=== PATIENT | female | born 1960 | race Caucasian/White ===

== ENCOUNTER → 2016-04-14 | Outpatient (CLI) | payer OTHER ==
[~2016-04-14] MED LIST: SINCALIDE 5 MCG VIAL IJ ONE
--- NOTE | 2016-04-14 10:46 | NM ---
Nuclear Medicine Hepatobiliary Scan with a Gallbladder Ejection Fraction Clinical History: 56-year-old female with epigastric pain and normal gallbladder sonography. Evaluate for dyskinesia. ICD-10 Diagnostic Code: R10.13. Radiopharmaceutical: 6.8 mCi of IV technetium 99m Choletec. Medical Pharmaceutical: 0.81 mcg of IV cholecystokinin, slowly infused over 30 minutes. Comparison Study: Limited right upper quadrant abdominal sonography, dated April 06, 2016. Findings: Following the uncomplicated intravenous administration of the radiopharmaceutical, there is prompt homogeneous uptake by the liver. The gallbladder begins to fill by 12-13 minutes, and small b owel begins to fill by 8 minutes. There is therefore no evidence of acute or chronic cholecystitis, o r cystic or common bile duct obstruction. There is no duodenal-gastric reflux appreciated. Gallbladder Ejection Fraction: There is prompt washout on the time-activity curve, with a gallbladder ejection fraction of 84% (normal range should be above 35%). There is therefore no evidence of gallb ladder dyskinesia. Impression: Normal study.
== END ==
LOC: FIMAGING 08:19
PROVIDERS: ATTEND Internal Medicine
DX: R10.13 Epigastric pain (principal)
CPT/HCPCS: 78227; A9537

== ENCOUNTER 2016-06-06 17:14 | Emergency (ER) | payer OTHER ==
[2016-06-06 18:07] VITALS: BP 111/69; PULSE 86; RESP 18; TEMP 97.2; O2SAT 100
[2016-06-06] MEDS ORDERED: AZITHROMYCIN 250 MG TAB PO ONE (19:09)
[2016-06-06] MEDS ORDERED: AMOXICILLIN/CLAVULANATE POT 875/125 MG TAB PO ONE (19:09)
--- NOTE | 2016-06-06 19:15 | UCPHY ---
H & P Time Seen by Provider: 06/06/16 18:09 Patient Type: Established HPI/ROS: HPI I think I have pneumonia. 56-year-old female who is an avid runner. She reports that she has had a nonproductive cough that has been worsening over the last 4 days, worse with exercise. She reports also that she feels a pain in her right upper chest that radiates to her back. She notices this also when she is laying on her right side. She denies fever. She reports having some intermittent chills. ROS: Constitutional: No fever, as above. No weakness. Eyes: No discharge. No changes in vision. ENT: No sore throat. No nasal congestion or rhinorrhea. Respiratory: As above. No shortness of breath. Cardiac: No chest pain, no palpitations. Gastrointestinal: No abdominal pain, no vomiting, no diarrhea. Genitourinary: No hematuria. No dysuria or increased frequency with urination. Musculoskeletal: No back pain. No neck pain. No myalgias or arthralgias. Skin: No rashes. Neurological: No headache. No focal weakness or altered sensation. Past medical history: Hypothyroidism, appendectomy, , right knee surgery. Social history: Here by herself. Nonsmoker Physical Exam: General Appearance: Alert, no distress. This patient is responding to questions appropriately and in full sentences. This patient appears well- hydrated and well-nourished. Eyes: Pupils equal and round no pallor or injection. No lid edema, erythema or injection. ENT, Mouth: Mucous membranes are moist. The pharyngeal tissues are unremarkable. No edema or swelling. No asymmetry suggestive of abscess. No erythema or exudates. Respiratory: There are no retractions, lungs are clear to auscultation with good air movement bilaterally. Chest wall is nontender to palpation. Cardiovascular: Regular rate and rhythm. No murmur. Neurological: Motor sensory function is grossly intact. Cranial nerves are normal. Gait is normal. Skin: Warm and dry, no rashes. Musculoskeletal: Neck is supple and nontender. Extremities are symmetrical. All joints range without pain or impingement. Psychiatric: No agitation. No depression. Database: EKG: Imaging: Chest x-ray PA and lateral; the cardiac mediastinal silhouette is unremarkable. Right upper lobe infiltrate, no pneumothorax. No acute cardiopulmonary disease process noted. Interpreted by me. Procedures: Emergency department course: Vital signs reviewed and are normal. I discussed her medication allergies. She is an avid runner. I am concerned about tendinopathy if treated with fluoroquinolones. I will start her on Augmentin and azithromycin at urgent care. I feel she is safe for discharge and she feels comfortable going home. She will be prescribed these medications for treatment of her pneumonia. I discussed the importance of follow-up this week with her primary care physician. Return to Urgent Care precautions were thoroughly reviewed. All of her questions were answered. She was discharged in good condition Differential Diagnosis: The differential diagnosis on this patient includes but is not limited to pneumonia. Influenza, pneumothorax, congestive heart failure unlikely. This represents a partial list of diagnoses considered. These considerations are based on history, physical exam, past history, reassessment and diagnostic testing. Smoking Status: Never smoked Constitutional: Initial Vital Signs Temperature (C) 36.2 C 06/06/16 18:05 Heart Rate 86 06/06/16 18:05 Respiratory Rate 18 06/06/16 18:05 Blood Pressure 111/69 06/06/16 18:05 O2 Sat (%) 100 06/06/16 18:05 O2 Delivery Mode Room Air Allergies/Adverse Reactions: No Known Allergies Allergy (Verified 06/06/16 17:38) Home Medications: Medication Instructions Recorded Levothyroxine 12/21/14 Adderall 10 MG (RX) 05/18/15 GABAPENTIN 12/11/15 Amoxicillin/Clavulanate Pot 875 mg PO BID 10 Days 06/06/16 [Augmentin 875 mg tab] Azithromycin [Zithromax] 250 mg PO DAILY #6 tab 06/06/16 Departure - Departure Disposition: Home, Routine, Self-Care Clinical Impression: Pneumonia Condition: Good Instructions: Community Acquired Pneumonia (ED) Additional Instructions: Read and follow provided instructions. Follow-up with your primary care physician in 1-2 days for re-evaluation. No running or physical strenuous activity until you are asymptomatic and you have finished her antibiotics. Take medication as prescribed. It is very important you take your antibiotics just as prescribed through entire course of treatment. Return to the emergency department for worsening cough, fever, difficulty breathing or other serious concerns. Referrals: Selvin Ye DO [Primary Care Provider] - As per Instructions Prescriptions: Amoxicillin/Clavulanate Pot [Augmentin 875 mg tab] 875 mg PO BID 10 Days Azithromycin [Zithromax] 250 mg PO DAILY #6 tab - PQRS PQRS Measurement: 134: Depression screening and followup, PRIME MD-PHQ2 (12 years and older) Over the last 2 weeks, how often have you been bothered by any of the following problems? 1. Feeling down, depressed, or hopeless? 2. Little interest or pleasure in doing things? Answered no to both questions. 130: Documentation of medications. Reviewed all patient medications, doses, route and frequency. 226: Do you smoke? No. 47: 65 and older: Advanced care planning. Patient designates surrogate decision maker as family. 51: 18 years old and older with diagnosis of COPD, spirometry performance. NA 52: 18 years old and older with COPD and symptoms of COPD or FEV1<60% predicted prescribed a B Agonist. NAfamily
[2016-06-06] MEDS ORDERED: HYDROCODONE/APAP 5/325 TAB PO ONE (19:30)
[2016-06-06] MEDS ORDERED: HYDROCODONE/APAP 5/325 TAB ONE (19:36)
== END 2016-06-06 19:30 | disposition home or self-care (01) ==
LOC: CED 17:14
DX: J18.9 Pneumonia, unspecified organism (principal); E03.9 Hypothyroidism, unspecified
CPT/HCPCS: 71020-PO; 99214-PO; G0463-PO

== ENCOUNTER 2016-06-12 16:04 | Emergency (ER) | payer OTHER ==
--- NOTE | 2016-06-12 16:35 | UCPHY ---
H & P Time Seen by Provider: 06/12/16 16:24 Patient Type: Established HPI/ROS: CHIEF COMPLAINT: Chest pain. HISTORY OF PRESENT ILLNESS: The patient is a 56-year-old female with a current diagnosis of pneumonia (diagnosed June 06 and placed on antibiotics) presenting with chest pain, however, was also worse with taking a deep breath and with movement of the right arm. She initially presented in May for 5 days of exertional chest pain and shortness of breath. Chest x-ray at that time , I have reviewed both the films as well as the report showed possible early right upper lobe infiltrate. In March,She notes that she had a diagnosis of pneumonia based on chest x- ray with cough and chills; she had a prompt resolution of symptomatology while on a course of Augmentin, I reviewed the records from that visit. I have also reviewed the chest x-ray, as well. She noted last week when seen that these symptoms were similar to her prior pneumonia that was diagnosed in March. Recently she has noticed that she gets chest pain, shortness of breath, nausea, and "head burning" with exertion. She denies diaphoresis, vomiting, fever, chills, or other complaints. She is now getting tired walking up normal flights of stairs. 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 Vis-a-vis, she could no longer mop a more than a 10 12 foot area without having to rest, due to right arm pain. She tried to use the left arm and she would get similar fatigue but no arm pain. She reports approximately 15 lb of recent weight loss, but this was attributable to her intestinal problems by way of her slat basket maker helper machine which has stabilized.. She denies tuberculosis exposure, nor night sweats. She had extensive workup this past March including HIDA scan. Her father of leukemia at 80 and her mother of liver cancer at 57. She has an extensive family history of obesity, but no early-onset coronary disease. Cardiac risk factors: Age Pulmonary embolus risk factors: none Aortic dissection risk factors: None REVIEW OF SYSTEMS: Constitutional - no fevers or chills Eyes - no diplopia, blurred vision, or discharge ENT - no earache, change in hearing, difficulty swallowing, sore throat. Cardiovascular - no chest pain, shortness of breath, or difficulty breathing. Respiratory - No Shortness of breath, cough, phlegm, wheezing or pleuritic chest pain. GI - no nausea vomiting or diarrhea. There is no abdominal pain or distention. No melena, hematochezia, or bright red blood per rectum. - No hematuria or flank pain. Musculoskeletal - no joint or muscle pain. 10 point ROS otherwise negative Past Medical/Surgical History: Pneumonia, GERD. Social History: Nonsmoker. Smoking Status: Never smoked Physical Exam: General Appearance: Alert, no distress. Afebrile. Normal phonation. No respiratory distress. Eyes: Pupils equal and round no pallor or injection. No icterus ENT, Mouth: Mucous membranes moist. Pharynx not erythematous and without exudate. TM Clear. Neck: No adenopathy. Supple. No JVD. Trachea in midline. Respiratory: There are no retractions, lungs are clear to auscultation. Cardiovascular: Regular rate and rhythm, no murmur. Abdomen: Soft and nontender, no masses, bowel sounds normal. Neurological: Ox3. No motor weakness. Sensation intact. Gait nl. Skin: Warm and dry, no rashes. Musculoskeletal: She is able to abduct the arm however it does cause pain. She has a negative drop test. The area of the bicipital groove is tender however there is no specific site of tenderness in the to suggest a bursitis that would be amenable to injection. However, even the patient notes that this does not cause a recurrence of the pains in the chest that she has been experiencing with exertion and with her mopping. Extremities: No edema. Homans sign negative. No cords. Psychiatric: Patient is oriented X 3, there is no agitation Constitutional: Initial Vital Signs Temperature (C) 36.6 C 06/12/16 16:25 Heart Rate 90 06/12/16 16:25 Respiratory Rate 16 06/12/16 16:25 Blood Pressure 133/73 H 06/12/16 16:25 O2 Sat (%) 95 06/12/16 16:25 O2 Delivery Mode Room Air Allergies/Adverse Reactions: No Known Allergies Allergy (Verified 06/12/16 16:38) Home Medications: Medication Instructions Recorded Levothyroxine 12/21/14 Adderall 10 MG (RX) 05/18/15 GABAPENTIN 12/11/15 Amoxicillin/Clavulanate Pot 875 mg PO BID 10 Days 06/06/16 [Augmentin 875 mg tab] Medical Decision Making - Diagnostics EKG Interpretation: The 12 lead EKG was interpreted by myself. See hard copy and/or "tracemaster" electronic copy for interpretation. Sinus rhythm. Heart rate is 79. Pr interval 136, normal. QTC normal at 459. Normal R-wave progression. No Q- waves. Normal ST-T segments. Normal EKG. Imaging: Study: PA and Lateral Chest X-ray Indication: Chest pain Results: I viewed the images myself on the PACS system, as well as comparing this chest x-ray to the chest x-rays in May as well as March.. My interpretation of the images is: no acute cardiopulmonary disease. The radiologist interpretation is pending at the time of this dictation. ED Course/Re-evaluation: An IV was established and labs ordered. Chest x-ray ordered. 1903: Reassessed patient. Discussed results of her x-rays and blood work. She is noted to have a pain with AB duction of the shoulder but a negative drop test. There is tenderness however over the bicipital groove on the right shoulder but no clear point tenderness to indicate a need for steroid injection. Differential Diagnosis: Differential diagnosis includes but is not limited to the following: ACS, myocardial infarction, pneumothorax, pleurisy, pulmonary embolus, aortic dissection, anxiety, muscle strain. I am unable to do a perk score due to her age 56 Based upon her Wells criteria she is low risk for DVT PE with a negative D- dimer. Her Heart Score is rather low 1-2. I have encouraged her see her family physician for a discussion regarding the benefits of a doing a stress test. However clinically I feel that she is having tendinitis right shoulder but this does not explain her exertional fatigue thereby the recommendation for follow-up She is planning to see physical therapy upon my recommendation she has when she has seen before and will make arrangements accordingly. In the interim due to her digestive issues, she should resume her Prilosec while she is taking ibuprofen - Data Points Laboratory Results: Laboratory Results 06/12/16 17:30 06/12/16 17:30 06/12/16 06/12/16 06/12/16 17:30 17:30 17:30 WBC RBC Hgb Hct MCV MCH MCHC RDW Plt Count MPV Neut % (Auto) Lymph % (Auto) [place] % (Auto) Eos % (Auto) Baso % (Auto) Nucleat RBC Rel Count Absolute Neuts (auto) Absolute Lymphs (auto) Absolute Monos (auto) Absolute Eos (auto) Absolute Basos (auto) Absolute Nucleated RBC Immature Gran % Immature Gran # D-Dimer < 0.27 ug/mLFEU ug/mLFEU (0.00-0.50) Sodium 140 mEq/L mEq/L (134-144) Potassium 4.1 mEq/L mEq/L (3.5-5.2) Chloride 102 mEq/L mEq/L (97-110) Carbon Dioxide 27 mEq/l mEq/l (22-31) Anion Gap 11 mEq/L mEq/L (8-16) BUN 23 mg/dL mg/dL (7-23) Creatinine 0.5 mg/dL L mg/dL (0.6-1.0) Estimated GFR > 60 Glucose 106 mg/dL H mg/dL (70-100) Calcium 9.3 mg/dL mg/dL (8.5-10.4) Troponin I < 0.012 ng/mL ng/mL (0-0.034) Urine Color YELLOW Urine Appearance CLEAR Urine pH 7.0 (5.0-7.5) Ur Specific [place] 1.010 (1.002-1.030) Urine Protein NEGATIVE (NEGATIVE) Urine Ketones NEGATIVE (NEGATIVE) Urine Blood NEGATIVE (NEGATIVE) Urine Nitrate NEGATIVE (NEGATIVE) Urine Bilirubin NEGATIVE (NEGATIVE) Urine Urobilinogen 0.2 EU EU (0.2-1.0) Ur Leukocyte Esterase NEGATIVE (NEGATIVE) Urine Glucose NEGATIVE (NEGATIVE) 06/12/16 17:30 WBC 3.70 10^3/uL L 10^3/uL (3.80-9.50) RBC 5.01 10^6/uL 10^6/uL (4.18-5.33) Hgb 14.8 g/dL g/dL (12.6-16.3) Hct 42.7 % % (38.0-47.0) MCV 85.2 fL fL (81.5-99.8) MCH 29.5 pg pg (27.9-34.1) MCHC 34.7 g/dL g/dL (32.4-36.7) RDW 13.1 % % (11.5-15.2) Plt Count 278 10^3/uL 10^3/uL (150-400) MPV 9.8 fL fL (8.7-11.7) Neut % (Auto) 47.4 % % (39.3-74.2) Lymph % (Auto) 38.6 % % (15.0-45.0) [place] % (Auto) 10.5 % % (4.5-13.0) Eos % (Auto) 2.4 % % (0.6-7.6) Baso % (Auto) 1.1 % % (0.3-1.7) Nucleat RBC Rel Count 0.0 % % (0.0-0.2) Absolute Neuts (auto) 1.75 10^3/uL 10^3/uL (1.70-6.50) Absolute Lymphs (auto) 1.43 10^3/uL 10^3/uL (1.00-3.00) Absolute Monos (auto) 0.39 10^3/uL 10^3/uL (0.30-0.80) Absolute Eos (auto) 0.09 10^3/uL 10^3/uL (0.03-0.40) Absolute Basos (auto) 0.04 10^3/uL 10^3/uL (0.02-0.10) Absolute Nucleated RBC 0.00 10^3/uL 10^3/uL (0-0.01) Immature Gran % 0.0 % % (0.0-1.1) Immature Gran # 0.00 10^3/uL 10^3/uL (0.00-0.10) D-Dimer Sodium Potassium Chloride Carbon Dioxide Anion Gap BUN Creatinine Estimated GFR Glucose Calcium Troponin I Urine Color Urine Appearance Urine pH Ur Specific [place] Urine Protein Urine Ketones Urine Blood Urine Nitrate Urine Bilirubin Urine Urobilinogen Ur Leukocyte Esterase Urine Glucose Medications Given: Discontinued Medications Aspirin (Aspirin) 324 mg PO EDNOW ONE Stop: 06/12/16 17:00 Last Admin: 06/12/16 17:30 Dose: 324 mg Departure - Departure Disposition: Home, Routine, Self-Care Clinical Impression: Right shoulder tendonitis Chest pain Qualifiers: Chest pain type: unspecified Qualified Code(s): R07.9 - Chest pain, unspecified Fatigue Qualifiers: Fatigue type: unspecified Qualified Code(s): R53.83 - Other fatigue Condition: Good Instructions: Chest Pain (ED), Tendinitis (ED), Fatigue (ED) Additional Instructions: Follow up with your primary care provider this coming week for reevaluation. Take 600mg Ibuprofen 3 times daily with food. Re - Start taking your Prilosec as well. Discontinue use of your antibiotics. See physical therapy for your tendinitis of the right shoulder Return for any serious worsening of condition. Referrals: Selvin Ye, DO [Primary Care Provider] - As per Instructions - PQRS PQRS Measurement: Not applicable. Report Scribed for: Donavan Crenshaw Report Scribed by: Selvin Celeste Date of Report: 06/12/16 Time of Report: 16:37 Physician Review and Approval Statement: 06/12/16 16:37 Portions of this note were transcribed by a medical advisor. I personally performed a history, physical exam, medical decision making, and confirmed accuracy of information the transcribed note.
[2016-06-12 16:42] VITALS: BP 133/73; PULSE 90; RESP 16; TEMP 97.9; O2SAT 95
[2016-06-12] MEDS ORDERED: ASPIRIN 81 MG CHEWABLE TAB PO ONE (16:59)
--- NOTE | 2016-06-12 17:16 | CPEKG ---
Heart Rate: 79 RR Interval: 759 P-R Interval: 136 QRSD Interval: 90 QT Interval: 400 QTC Interval: 459 P [place]: 77 QRS [place]: 87 T Wave [place]: 69 EKG Severity - NORMAL ECG - EKG Impression: SINUS RHYTHM Electronically Signed By: Donavan Crenshaw 12-Jun-2016 23:05:25
[2016-06-12 17:33] LABS: ADD DIFF? NO; ADD MORPH? NO; ADD SCAN? NO; ATYPICAL LYMPHOCYTE FLAG 0 (0-99); FRAGMENT RBC FLAG 0 (0-99); HEMATOCRIT 42.7 % (38.0-47.0); HEMOGLOBIN 14.8 g/dL (12.6-16.3); LEFT SHIFT FLG 0 (0-99); LIPEMIA HEMOLYSIS FLAG 90 (0-99); MEAN CELL HEMOGLOBIN 29.5 pg (27.9-34.1); MEAN CELL HEMOGLOBIN CONCENTR. 34.7 g/dL (32.4-36.7); MEAN CELL VOLUME 85.2 fL (81.5-99.8); MEAN PLATELET VOLUME 9.8 fL (8.7-11.7); PLATELET CLUMPS FLAG 0 (0-99); PLATELET COUNT 278 10^3/uL (150-400); RED BLOOD CELL COUNT 5.01 10^6/uL (4.18-5.33); RED CELL DISTRIBUTION WIDTH 13.1 % (11.5-15.2)
[2016-06-12 17:47] LABS: ANION GAP 11 mEq/L (8-16); CALCIUM 9.3 mg/dL (8.5-10.4); CARBON DIOXIDE 27 mEq/l (22-31); CHLORIDE 102 mEq/L (97-110); CREATININE 0.5 mg/dL (0.6-1.0); GLOMERULAR FILTRATION RATE > 60; GLUCOSE 106 mg/dL (70-100); POTASSIUM 4.1 mEq/L (3.5-5.2); SODIUM 140 mEq/L (134-144)
[2016-06-12 17:54] LABS: COLOR YELLOW; LEUKOCYTE ESTERASE,URINE NEGATIVE (NEGATIVE); NITRITE,URINE NEGATIVE (NEGATIVE)
[2016-06-12 18:00] LABS: TROPONIN I < 0.012 ng/mL (0-0.034)
== END 2016-06-12 19:25 | disposition home or self-care (01) ==
LOC: CED 16:04
DX: R07.9 Chest pain, unspecified (principal); R53.83 Other fatigue; M75.81 Other shoulder lesions, right shoulder
CPT/HCPCS: 71020-PO; 80048-PO; 81003-PO; 84484-PO; 85025-PO; 85378-PO; 93010-PO; 99215-PO; G0463-PO

== ENCOUNTER 2016-07-30 12:04 | Emergency (ER) | payer OTHER ==
--- NOTE | 2016-07-30 12:40 | UCPHY ---
H & P Time Seen by Provider: 07/30/16 12:27 Patient Type: Established (CHIEF COMPLAINT: [ ]HISTORY OF PRESENT ILLNESS: [ must have 4 elements]REVIEW OF SYSTEMS: My complete review of systems is negative except as mentioned in the HPI.) HPI/ROS: CHIEF COMPLAINT: Right upper quadrant abdominal pain HISTORY OF PRESENT ILLNESS: The patient is a 56-year-old female who presents to the emergency department with right upper quadrant abdominal pain. She states her symptoms started 1 week ago. They are intermittent. She states her pain is worse with movement. It is sharp. She has had nausea but no vomiting. No shortness of breath or chest pain. No fevers or chills. No dysuria frequency. No leg pain or swelling. No travel. REVIEW OF SYSTEMS: My complete review of systems is negative except as mentioned in the HPI. Past Medical/Surgical History: Includes appendectomy, bunion surgery, meniscus repair, Smoking Status: Never smoked Physical Exam: Vitals noted GENERAL: Well-appearing, in no acute distress, alert. HEENT: Eyes normal to inspection, normal pharynx, no signs of dehydration. NECK: No thyromegaly, no lymphadenopathy, supple. RESPIRATORY: Clear to auscultation bilaterally, no rales, rhonchi or wheezing. CVS: Regular rate and rhythm, no rubs, murmurs, or gallops. ABDOMEN: Soft, right upper quadrant tenderness to palpation with no rebound or guarding, nondistended, no organomegaly. BACK: Normal to inspection, no CVA tenderness. SKIN: Normal color, no rash, warm, dry. No pallor. No zoster EXTREMITIES: No pedal edema, no calf tenderness, no Homans sign or cords, no joint swelling. NEURO/PSYCH: Alert and oriented, normal mood and affect, normal motor sensory exam. Constitutional: Initial Vital Signs Temperature (C) 36.6 C 07/30/16 12:11 Heart Rate 74 07/30/16 12:11 Blood Pressure 116/64 07/30/16 12:11 O2 Sat (%) 98 07/30/16 12:11 O2 Delivery Mode Room Air Allergies/Adverse Reactions: No Known Allergies Allergy (Verified 07/30/16 12:13) Home Medications: Medication Instructions Recorded Levothyroxine 12/21/14 Adderall 10 MG (RX) 05/18/15 GABAPENTIN 12/11/15 Amoxicillin/Clavulanate Pot 875 mg PO BID 10 Days 06/06/16 [Augmentin 875 mg tab] Medical Decision Making - Diagnostics Imaging Results: Imaging Impressions Abdomen Ultrasound 07/30/16 12:55 Impression: 1. Negative right upper quadrant ultrasound. 2. See above report for additional findings Results called and discussed with ALICIA MCNEAL M.D. on 07/30/2016 at 13:38 Chest X-Ray 07/30/16 12:55 Impression: Normal. ED Course/Re-evaluation: In urgent care discussed possible etiologies with the patient. I answered all her questions. Laboratory studies, chest x-ray and right upper quadrant ultrasound were ordered. The patient was given Toradol 30 mg IV for pain control. I reviewed the patient's laboratory studies. Her CBC, chemistry and LFTs were normal. Chest x-ray: No focal infiltrate. Ultrasound right upper quadrant: Please refer the dictated report by Dr. Kyle Melara. No abnormality noted. I discussed the results with the patient. I answered all her questions. I discussed treatment options. The patient has seen Dr. Coley from GI. She will follow up with Dr. Coley as well as her primary care physician. Differential Diagnosis: Differential includes but is not limited to cholecystitis, cholangitis, pancreatitis, PE, pneumonia, peptic ulcer disease, GERD, pyelonephritis, urinary tract infection - Data Points Laboratory Results: Laboratory Results 07/30/16 12:33 07/30/16 12:33 07/30/16 07/30/16 07/30/16 12:33 12:33 12:33 WBC 4.24 10^3/uL 10^3/uL (3.80-9.50) RBC 5.11 10^6/uL 10^6/uL (4.18-5.33) Hgb 15.1 g/dL g/dL (12.6-16.3) Hct 44.3 % % (38.0-47.0) MCV 86.7 fL fL (81.5-99.8) MCH 29.5 pg pg (27.9-34.1) MCHC 34.1 g/dL g/dL (32.4-36.7) RDW 12.7 % % (11.5-15.2) Plt Count 298 10^3/uL 10^3/uL (150-400) MPV 10.0 fL fL (8.7-11.7) Neut % (Auto) 55.6 % % (39.3-74.2) Lymph % (Auto) 32.5 % % (15.0-45.0) [place] % (Auto) 8.7 % % (4.5-13.0) Eos % (Auto) 2.1 % % (0.6-7.6) Baso % (Auto) 0.9 % % (0.3-1.7) Nucleat RBC Rel Count 0.0 % % (0.0-0.2) Absolute Neuts (auto) 2.35 10^3/uL 10^3/uL (1.70-6.50) Absolute Lymphs (auto) 1.38 10^3/uL 10^3/uL (1.00-3.00) Absolute Monos (auto) 0.37 10^3/uL 10^3/uL (0.30-0.80) Absolute Eos (auto) 0.09 10^3/uL 10^3/uL (0.03-0.40) Absolute Basos (auto) 0.04 10^3/uL 10^3/uL (0.02-0.10) Absolute Nucleated RBC 0.00 10^3/uL 10^3/uL (0-0.01) Immature Gran % 0.2 % % (0.0-1.1) Immature Gran # 0.01 10^3/uL 10^3/uL (0.00-0.10) Sodium 138 mEq/L mEq/L (134-144) Potassium 4.8 mEq/L mEq/L (3.5-5.2) Chloride 102 mEq/L mEq/L (97-110) Carbon Dioxide 27 mEq/l mEq/l (22-31) Anion Gap 9 mEq/L mEq/L (8-16) BUN 26 mg/dL H mg/dL (7-23) Creatinine 0.5 mg/dL L mg/dL (0.6-1.0) Estimated GFR > 60 Glucose 98 mg/dL mg/dL (70-100) Calcium 9.3 mg/dL mg/dL (8.5-10.4) Total Bilirubin 0.4 mg/dL mg/dL (0.1-1.4) Conjugated Bilirubin 0.2 mg/dL mg/dL (0.0-0.5) Unconjugated Bilirubin 0.2 mg/dL mg/dL (0.0-1.1) AST 31 IU/L IU/L (14-46) ALT 59 IU/L H IU/L (9-52) Alkaline Phosphatase 123 IU/L IU/L (38-126) Total Protein 6.4 g/dL g/dL (6.3-8.2) Albumin 3.6 g/dL g/dL (3.5-5.0) Lipase 179.0 IU/L IU/L (23-300) Urine Color YELLOW Urine Appearance CLEAR Urine pH 5.5 (5.0-7.5) Ur Specific [place] 1.025 (1.002-1.030) Urine Protein NEGATIVE (NEGATIVE) Urine Ketones NEGATIVE (NEGATIVE) Urine Blood NEGATIVE (NEGATIVE) Urine Nitrate NEGATIVE (NEGATIVE) Urine Bilirubin NEGATIVE (NEGATIVE) Urine Urobilinogen 0.2 EU EU (0.2-1.0) Ur Leukocyte Esterase NEGATIVE (NEGATIVE) Ur Culture Indicated? NOT INDICATED (NI) Urine Glucose NEGATIVE (NEGATIVE) Medications Given: Discontinued Medications Ketorolac Tromethamine (Toradol) 30 mg IVP EDNOW ONE Stop: 07/30/16 12:57 Last Admin: 07/30/16 13:20 Dose: 30 mg Departure - Departure Clinical Impression: Abdominal pain Qualifiers: Abdominal location: right upper quadrant Qualified Code(s): R10.11 - Right upper quadrant pain Condition: Good Instructions: Acute Abdominal Pain (ED) Additional Instructions: Return with increasing abdominal pain, fever, vomiting, or any other concerns. Your laboratory studies, chest x-ray and ultrasound were normal. Referrals: Selvin Ye DO [Primary Care Provider] - 3-4 days, if not improved Gabriel Coley MD [Medical Doctor] - As per Instructions - PQRS PQRS Measurement: My PQRS negative my PQRS negative my PQRS negative my PQRS negative 134: Depression screening and followup, MD-PHQ2 (12 years and older) Over the last 2 weeks, how often have you been bothered by any of the following problems? 1. Feeling down, depressed, or hopeless? 2. Little interest or pleasure in doing things? Patient answered no to both 1 and 2 130: Documentation of medications. Reviewed all patient medications, doses, route and frequency. 226: Do you smoke? No.
[2016-07-30 12:52] VITALS: TEMP 97.9
[2016-07-30] MEDS ORDERED: KETOROLAC 30 MG/1 ML SDV IVP ONE (12:56)
[2016-07-30 13:02] LABS: % IMMATURE GRANULYOCYTES 0.2 % (0.0-1.1); ABSOLUTE IMMATURE GRANULOCYTES 0.01 10^3/uL (0.00-0.10); ADD DIFF? NO; ADD MORPH? NO; ADD SCAN? NO; ATYPICAL LYMPHOCYTE FLAG 10 (0-99); FRAGMENT RBC FLAG 0 (0-99); HEMATOCRIT 44.3 % (38.0-47.0); HEMOGLOBIN 15.1 g/dL (12.6-16.3); LEFT SHIFT FLG 0 (0-99); LIPEMIA HEMOLYSIS FLAG 90 (0-99); MEAN CELL HEMOGLOBIN 29.5 pg (27.9-34.1); MEAN CELL HEMOGLOBIN CONCENTR. 34.1 g/dL (32.4-36.7); MEAN CELL VOLUME 86.7 fL (81.5-99.8); PLATELET CLUMPS FLAG 0 (0-99); PLATELET COUNT 298 10^3/uL (150-400); RED BLOOD CELL COUNT 5.11 10^6/uL (4.18-5.33); RED CELL DISTRIBUTION WIDTH 12.7 % (11.5-15.2)
[2016-07-30 13:04] LABS: COLOR YELLOW; LEUKOCYTE ESTERASE,URINE NEGATIVE (NEGATIVE); NITRITE,URINE NEGATIVE (NEGATIVE); PH,URINE 5.5 (5.0-7.5)
[2016-07-30 13:10] LABS: ALANINE AMINOTRANSFERASE 59 IU/L (9-52); ALBUMIN 3.6 g/dL (3.5-5.0); ALKALINE PHOSPHATASE 123 IU/L (38-126); ANION GAP 9 mEq/L (8-16); ASPARTATE AMINOTRANSFERASE 31 IU/L (14-46); BILIRUBIN,TOTAL 0.4 mg/dL (0.1-1.4); BILIRUBIN-CONJUGATED 0.2 mg/dL (0.0-0.5); BILIRUBIN-UNCONJUGATED 0.2 mg/dL (0.0-1.1); CALCIUM 9.3 mg/dL (8.5-10.4); CARBON DIOXIDE 27 mEq/l (22-31); CHLORIDE 102 mEq/L (97-110); CREATININE 0.5 mg/dL (0.6-1.0); GLOMERULAR FILTRATION RATE > 60; GLUCOSE 98 mg/dL (70-100); POTASSIUM 4.8 mEq/L (3.5-5.2); SODIUM 138 mEq/L (134-144); TOTAL PROTEIN 6.4 g/dL (6.3-8.2)
[2016-07-30 14:44] VITALS: BP 109/74; PULSE 75; RESP 18; O2SAT 96
== END 2016-07-30 14:25 | disposition home or self-care (01) ==
LOC: CED 12:04
DX: R10.11 Right upper quadrant pain (principal)
CPT/HCPCS: 71020-PO; 76705-PO; 80048-PO; 80076-PO; 81003-PO; 83690-PO; 85025-PO; 96374-PO; 99215-PO; G0463-PO; J1885

== ENCOUNTER 2016-08-26 17:43 | Emergency (ER) | payer OTHER ==
[2016-08-26 17:56] VITALS: BP 128/78; PULSE 79; RESP 18; TEMP 97.9; O2SAT 97
--- NOTE | 2016-08-26 18:27 | EDPHY ---
H & P Time Seen by Provider: 08/26/16 17:57 HPI/ROS: This patient reports right maxillary sinus pain associated with some mild swelling to the overlying cheek. She reports associated moderate to severe pain described as achy in nature associated with nasal congestion. She took Advil 800 mg prior to arrival with partial relief. She self started leftover Augmentin that she had from a prior illness-875 mg 2 times a day 4 days prior to arrival without improvement and came in for further evaluation. She reports that she was diagnosed with right maxillary sinusitis the beginning of July on July 13 and started on the Augmentin. She took 3 weeks of the Augmentin with improvement during that course but within a few days had recurrence of symptoms. She also reports a burning pain to her head is more right-sided more than left side and some paresthesias to the cheek on the right side. She did see a facial pain physician who started her on gabapentin last year and she has had some chronic issues with this similar pain the patient has had premature dental decay as well and so she has both upper and lower dentures. She reports that it 2 years ago an oral surgeon Dr. Gomes reports her that there was a tooth root in the right maxillary sinus was unable to remove because it was adherent to the sinus wall. ROS: No recent fevers or chills. No other constitutional symptoms HEENT: Nasal congestion for more than 6 weeks. No sore throat or ear pain Neuro: No confusion, numbness tingling or focal weakness. No visual changes. No scintillating scotoma. Pulmonary: No symptoms Cardiovascular: No complaints Integumentary: No skin rash 7 point ROS is otherwise negative Past Medical/Surgical History: Patient has dentures with due to premature tooth decay with all of her teeth removed. Hypothyroid Attention deficit hyperactivity disorder Chronic facial pain on gabapentin (question trigeminal neuralgia) Smoking Status: Never smoked Physical Exam: Physical exam: Vital signs are normal General: Patient is in no acute distress. HEENT: Is no external evidence of trauma on exam. The patient does seem to have slight prominence or swelling to the right cheek compared to the left she states this is chronic for her. She has sinus tenderness to percussion in the right maxillary sinus. No other sinus tenderness. Nose: Swollen nasal mucosa on the right side. Left naris clear Nose atraumatic. Ears: Clear bilaterally with no hemotympanum. Oropharynx: No dental trauma or malocclusion. No intraoral lacerations. Eyes: Pupils are equal and reactive to light. Extraocular motions are intact. Optic fundi: Clear with no papilledema or hemorrhage. Lungs: Clear to auscultation bilaterally Neck: Supple no meningismus. Cardiac: Regular rate and rhythm no murmur gallop or rub. Abdomen: Soft nontender no organomegaly Skin: No rash Neuro: GCS of 15. Cranial nerves II through XII intact. Cerebellar exam is normal as judged by symmetric rapid hand movements bilaterally. No pronator drift. No sensory or motor deficits are appreciated. Initial differential diagnosis: Chronic sinusitis, trigeminal neuralgia Migraine, tension headache, doubt LABORATORY MECHANICAL TECHNICIAN lesion, intracranial bleed Constitutional: Initial Vital Signs Temperature (C) 36.6 C 08/26/16 17:53 Heart Rate 79 08/26/16 17:53 Respiratory Rate 18 08/26/16 17:53 Blood Pressure 128/78 H 08/26/16 17:53 O2 Sat (%) 97 08/26/16 17:53 O2 Delivery Mode Room Air Allergies/Adverse Reactions: No Known Allergies Allergy (Verified 07/30/16 12:13) Home Medications: Medication Instructions Recorded Levothyroxine 12/21/14 Adderall 10 MG (RX) 05/18/15 GABAPENTIN 12/11/15 Clindamycin 300 mg PO QID #224 cap 08/26/16 Fluticasone Nasal [Flonase Nasal 2 sprays NASAL DAILY #1 mdi 08/26/16 [place] (RX)] Hydrocodone/APAP 5/325 [[place] 1 - 2 tab PO Q4PRN PRN #6 tab 08/26/16 5/325 (*)] MDM/Departure - [facility] ED Course/Re-evaluation: I counseled the patient regarding chronic sinusitis and trigeminal neuralgia. I advised against x-ray of her face that she requested at this time preferring associated adequately treat her apparent chronic sinusitis and have her follow up with ENT for any ongoing symptoms despite the treatment plan. I see no evidence of zoster, no concerning findings that would suggest a LABORATORY MECHANICAL TECHNICIAN infection or intracranial bleed. She has a normal neuro exam and mentation today. I carefully counseled regarding antibiotics including the risk of C diff in toxic megacolon on clindamycin. Patient understands this possibility. We also discussed moxifloxacin an attendant minor risk of tendon inflammation/ weakening. The patient prefers clindamycin with its attendant side effects and potential risk of colitis. - Depart Disposition: Home, Routine, Self-Care Condition: Good Instructions: Sinusitis (ED) Additional Instructions: Diagnosis: Chronic right maxillary sinusitis Plan: Humidifier Flonase steroid nasal spray for 10 14 days Stop Augmentin start clindamycin Take yogurt & probiotic while on this to prevent diarrhea and or colitis while on this medication. This is important. Ibuprofen-600 mg per 6 hours and Tylenol-1000 mg per 6 hours as needed for pain or Vicodin for pain that prevents sleep. No driving, alcohol or come Vicodin. Follow up with Dr. Viktoriya Portillo-ENT specialist or ENT specialist of your choice if you're still not improving with this treatment plan. Prescriptions: Clindamycin 300 mg PO QID #224 cap Fluticasone Nasal [Flonase Nasal [place] (RX)] 2 sprays NASAL DAILY #1 mdi Hydrocodone/APAP 5/325 [[place] 5/325 (*)] 1 - 2 tab PO Q4PRN PRN #6 tab PRN Reason: Pain Referrals: Selvin Ye DO [Primary Care Provider] - As per Instructions Viktoriya Portillo MD [Medical Doctor] - As per Instructions
== END 2016-08-26 18:38 | disposition home or self-care (01) ==
LOC: CED 17:43
DX: J32.0 Chronic maxillary sinusitis (principal)

== ENCOUNTER → 2016-10-07 | Outpatient (CLI) | payer OTHER | LOC: BMCIMAGING 17:34 | PROVIDERS: ATTEND Family Medicine | DX: R10.12 Left upper quadrant pain (principal) ==

== ENCOUNTER 2016-10-13 05:52 | Emergency (ER) | payer OTHER ==
[2016-10-13 06:59] LABS: % IMMATURE GRANULYOCYTES 0.3 % (0.0-1.1); ABSOLUTE IMMATURE GRANULOCYTES 0.01 10^3/uL (0.00-0.10); ADD DIFF? NO; ADD MORPH? NO; ADD SCAN? NO; ATYPICAL LYMPHOCYTE FLAG 20 (0-99); FRAGMENT RBC FLAG 0 (0-99); HEMATOCRIT 43.7 % (38.0-47.0); LEFT SHIFT FLG 0 (0-99); LIPEMIA HEMOLYSIS FLAG 90 (0-99); MEAN CELL HEMOGLOBIN 30.5 pg (27.9-34.1); MEAN CELL HEMOGLOBIN CONCENTR. 34.3 g/dL (32.4-36.7); MEAN PLATELET VOLUME 9.9 fL (8.7-11.7); PLATELET CLUMPS FLAG 10 (0-99); PLATELET COUNT 265 10^3/uL (150-400); RED BLOOD CELL COUNT 4.91 10^6/uL (4.18-5.33); RED CELL DISTRIBUTION WIDTH 12.8 % (11.5-15.2)
--- NOTE | 2016-10-13 06:59 | EDPHY ---
H & P Stated Complaint: c/o severe L sided abd pain x 2.5 weeks Time Seen by Provider: 10/13/16 06:09 HPI/ROS: HPI The patient presents with left-sided upper abdominal pain for the last 2 and half weeks which started slowly and has been getting progressively worse. The pain is worse with changes in position and feels like a muscle. It is worse when she does Pilates. She does not have any nausea or vomiting, though feels that food gets stuck in this area frequently. She does not have any diarrhea or constipation. However, she was seen at urgent care a few days ago and had a KUB which demonstrated constipation. Subsequently she took laxatives and had a large amount of stool out. She is concerned because she is not feeling much better after this. The urgent care ordered her an ultrasound for 3 days from now, however she feels she cannot wait this long to have the test done. REVIEW OF SYSTEMS Constitutional: No fever, no chills. Eyes: No discharge. ENT: No sore throat. Cardiovascular: No chest pain, no palpitations. Respiratory: No cough, no shortness of breath. Gastrointestinal: No abdominal pain, no vomiting. Genitourinary: No hematuria. Musculoskeletal: No back pain. Skin: No rashes. Neurological: No headache. PMHx: Status post appendectomy Soc Hx: Healthy, no drug use PHYSICAL General Appearance: Alert, no distress Eyes: Pupils equal and round no pallor or injection ENT, Mouth: Mucous membranes moist Respiratory: There are no retractions, lungs are clear to auscultation Cardiovascular: Regular rate and rhythm Gastrointestinal: Abdomen is soft and non-tender, no masses, bowel sounds normal Neurological: A&O, moves all extremities Skin: Warm and dry, no rashes Musculoskeletal: Neck is supple non tender Extremities: symmetrical, full range of motion Psychiatric: Patient is oriented X 3, there is no agitation Source: Patient Exam Limitations: No limitations - Personal History Tetanus Vaccine Date: 2009 - Medical/Surgical History Hx Asthma: No Hx Chronic Respiratory Disease: No Hx Diabetes: No Hx Cardiac Disease: No Hx Renal Disease: No Hx Cirrhosis: No Hx Alcoholism: No Hx HIV/AIDS: No Hx Splenectomy or Spleen Trauma: No Other PMH: hypothyroid, appendectomy, R knee surg, R bunionectomy, add - Social History Smoking Status: Never smoked Constitutional: Initial Vital Signs Heart Rate 67 10/13/16 05:59 Respiratory Rate 16 10/13/16 05:59 Blood Pressure 157/79 H 10/13/16 05:59 O2 Sat (%) 99 10/13/16 05:59 O2 Delivery Mode Room Air Allergies/Adverse Reactions: egg [eggs] Allergy (Verified 10/13/16 06:03) gluten Allergy (Verified 10/13/16 06:03) Home Medications: Medication Instructions Recorded Levothyroxine 12/21/14 Adderall 10 MG (RX) 05/18/15 GABAPENTIN 12/11/15 Fluticasone Nasal [Flonase Nasal 2 sprays NASAL DAILY #1 mdi 08/26/16 [place] (RX)] Hydrocodone/APAP 5/325 [[place] 1 - 2 tab PO Q4PRN PRN #6 tab 08/26/16 5/325 (*)] Medical Decision Making Differential Diagnosis: This is a 56-year-old female who presents from home with 2 and half weeks of left-sided abdominal pain. On exam, she does not have any tenderness in her exam is truly benign. She has been previously evaluated with a KUB which demonstrated constipation. Differential diagnosis today includes pancreatitis, gastritis however the patient has a recent negative endoscopy, muscular pain. Plan for basic labs. Follow up with primary care doctor or her mc kay machine operator. Labs were checked in the emergency room and they were normal. I feel her pain could be related to constipation or muscles. I do not think she needs any further advanced imaging while in the emergency room. She will be discharged with follow-up. - Data Points Laboratory Results: Laboratory Results 10/13/16 06:30 10/13/16 06:30 10/13/16 10/13/16 06:30 06:30 WBC 3.76 10^3/uL L 10^3/uL (3.80-9.50) RBC 4.91 10^6/uL 10^6/uL (4.18-5.33) Hgb 15.0 g/dL g/dL (12.6-16.3) Hct 43.7 % % (38.0-47.0) MCV 89.0 fL fL (81.5-99.8) MCH 30.5 pg pg (27.9-34.1) MCHC 34.3 g/dL g/dL (32.4-36.7) RDW 12.8 % % (11.5-15.2) Plt Count 265 10^3/uL 10^3/uL (150-400) MPV 9.9 fL fL (8.7-11.7) Neut % (Auto) 37.8 % L % (39.3-74.2) Lymph % (Auto) 45.2 % H % (15.0-45.0) Wolfe % (Auto) 12.2 % % (4.5-13.0) Eos % (Auto) 3.2 % % (0.6-7.6) Baso % (Auto) 1.3 % % (0.3-1.7) Nucleat RBC Rel Count 0.0 % % (0.0-0.2) Absolute Neuts (auto) 1.42 10^3/uL L 10^3/uL (1.70-6.50) Absolute Lymphs (auto) 1.70 10^3/uL 10^3/uL (1.00-3.00) Absolute Monos (auto) 0.46 10^3/uL 10^3/uL (0.30-0.80) Absolute Eos (auto) 0.12 10^3/uL 10^3/uL (0.03-0.40) Absolute Basos (auto) 0.05 10^3/uL 10^3/uL (0.02-0.10) Absolute Nucleated RBC 0.00 10^3/uL 10^3/uL (0-0.01) Immature Gran % 0.3 % % (0.0-1.1) Immature Gran # 0.01 10^3/uL 10^3/uL (0.00-0.10) Sodium 141 mEq/L mEq/L (134-144) Potassium 4.2 mEq/L mEq/L (3.5-5.2) Chloride 108 mEq/L mEq/L (97-110) Carbon Dioxide 25 mEq/l mEq/l (22-31) Anion Gap 8 mEq/L mEq/L (8-16) BUN 23 mg/dL mg/dL (7-23) Creatinine 0.5 mg/dL L mg/dL (0.6-1.0) Estimated GFR > 60 Glucose 92 mg/dL mg/dL (70-100) Calcium 9.7 mg/dL mg/dL (8.5-10.4) Total Bilirubin 0.6 mg/dL mg/dL (0.1-1.4) Conjugated Bilirubin 0.3 mg/dL mg/dL (0.0-0.5) Unconjugated Bilirubin 0.3 mg/dL mg/dL (0.0-1.1) AST 24 IU/L IU/L (14-46) ALT 44 IU/L IU/L (9-52) Alkaline Phosphatase 101 IU/L IU/L (38-126) Total Protein 6.4 g/dL g/dL (6.3-8.2) Albumin 4.0 g/dL g/dL (3.5-5.0) Lipase 78.0 IU/L IU/L (23-300) Departure - Departure Disposition: Home, Routine, Self-Care Clinical Impression: Left upper quadrant abdominal pain of unknown etiology Condition: Good Instructions: Acute Abdominal Pain (ED) Additional Instructions: Please follow-up with your primary care doctor or your mc kay machine operator in the next 1-2 days for further testing is needed. Referrals: Selvin Ye, [Primary Care Provider] - As per Instructions
[2016-10-13 07:11] LABS: ALANINE AMINOTRANSFERASE 44 IU/L (9-52); ALKALINE PHOSPHATASE 101 IU/L (38-126); ANION GAP 8 mEq/L (8-16); ASPARTATE AMINOTRANSFERASE 24 IU/L (14-46); BILIRUBIN,TOTAL 0.6 mg/dL (0.1-1.4); BILIRUBIN-CONJUGATED 0.3 mg/dL (0.0-0.5); BILIRUBIN-UNCONJUGATED 0.3 mg/dL (0.0-1.1); CALCIUM 9.7 mg/dL (8.5-10.4); CARBON DIOXIDE 25 mEq/l (22-31); CHLORIDE 108 mEq/L (97-110); CREATININE 0.5 mg/dL (0.6-1.0); GLOMERULAR FILTRATION RATE > 60; GLUCOSE 92 mg/dL (70-100); POTASSIUM 4.2 mEq/L (3.5-5.2); SODIUM 141 mEq/L (134-144); TOTAL PROTEIN 6.4 g/dL (6.3-8.2)
[2016-10-13 07:41] VITALS: BP 138/82; PULSE 68; RESP 18; TEMP 97.3; O2SAT 96
== END 2016-10-13 07:30 | disposition home or self-care (01) ==
DX: R10.12 Left upper quadrant pain (principal); Z90.49 Acquired absence of other specified parts of digestive tract

== ENCOUNTER 2016-10-30 19:50 | Emergency (ER) | payer OTHER ==
[2016-10-30 20:09] VITALS: BP 110/78; PULSE 88; RESP 16; TEMP 98.1; O2SAT 97
[2016-10-30] MEDS ORDERED: HYDROCODONE/APAP 5/325 TAB PO ONE (20:39)
[2016-10-30] MEDS ORDERED: AZITHROMYCIN 250 MG TAB PO ONE (20:39)
--- NOTE | 2016-10-30 20:44 | EDPHY ---
H & P Time Seen by Provider: 10/30/16 20:14 HPI/ROS: This patient complains of right frontal sinus pain associated with some nasal congestion that feels similar to prior sinusitis. She states the symptoms of been there for 5 days and she has associated fatigue. She requests antibiotics for her condition stating improvement with antibiotics in the past. She is currently undergoing workup for cervical: Head pain. I saw her in the past for a sinusitis and she reported a sinus cyst is a complication of a dental surgery. She subsequently followed up with Dr. Aguilar, ENT who then center on to see neurologist. She had an MRI of the brain in mid September for ongoing headaches that I reviewed these the results on revealed multiple white matter abnormalities-migraine sec will a verses early demyelinating disease. Dr. Navarrete , her neurologist ordered labs on October 25 which I reviewed in the computer- negative ANABELLA and antibody tests negative, HIV negative, Lyme negative, RPR negative. She had cervical MRI performed as well 2 days prior to arrival which reveals only mild DJD. She took ibuprofen prior to arrival with mild relief the discomfort notes no other exacerbating factors to the right cheek pain and forehead pain except slightly worse when she bends forward. ROS: No fevers or chills she does have fatigue as mention that she attributes to sinusitis. No other constitutional symptoms HEENT: As per HPI. No sore throat. Mild ear pressure right more than left. Pulmonary: No cough Cardiovascular: No chest pain GI: No nausea vomiting Integumentary: No skin rash Neuro: No numbness tingling or focal weakness 10 point ROS is otherwise negative. Past Medical/Surgical History: See HPI. Hypothyroid Recurrent sinusitis Smoking Status: Never smoked Physical Exam: Physical exam: Vital signs are normal General: Patient is in no acute distress. HEENT: Is no external evidence of trauma on exam. Eyes: Pupils are equal and reactive to light. Extraocular motions are intact. Optic fundi: Clear with no papilledema or hemorrhage. Nose -mild swollen nasal mucosa right more than left with sinus tenderness the right maxillary and frontal. Ears: Clear bilaterally with no hemotympanum. Oropharynx: No dental trauma or malocclusion. No intraoral lacerations. Eyes: Pupils are equal and reactive to light. Extraocular motions are intact. Optic fundi: Clear with no papilledema or hemorrhage. Lungs: Clear to auscultation bilaterally Neck: Supple no meningismus. Cardiac: Regular rate and rhythm no murmur gallop or rub. Abdomen: Soft nontender no organomegaly Neuro: GCS of 15. Cranial nerves II through XII intact. No sensory or motor deficits are appreciated. Initial differential diagnosis: Acute sinusitis, Migraine, tension headache, viral URI Constitutional: Initial Vital Signs Temperature (C) 36.7 C 10/30/16 20:07 Heart Rate 88 10/30/16 20:07 Respiratory Rate 16 10/30/16 20:07 Blood Pressure 110/78 10/30/16 20:07 O2 Sat (%) 97 10/30/16 20:07 O2 Delivery Mode Room Air O2 (L/minute) 97 Allergies/Adverse Reactions: egg [eggs] Allergy (Verified 10/30/16 20:09) gluten Allergy (Verified 10/30/16 20:09) Home Medications: Medication Instructions Recorded Levothyroxine 12/21/14 Adderall 10 MG (RX) 05/18/15 Fluticasone Nasal [Flonase Nasal 2 sprays NASAL DAILY #1 mdi 08/26/16 [place] (RX)] Advair Hfa 115-21 Mcg Inhaler 10/30/16 Azithromycin [Zithromax] 250 mg PO DAILY #4 tab 10/30/16 Fluticasone Nasal [Flonase Nasal 2 sprays NASAL DAILY #1 mdi 10/30/16 [place]] MDM/Departure - MDM Medications Given: Discontinued Medications Hydrocodone Bitart/Acetaminophen ([place] 5/325) 2 tab PO EDNOW ONE Stop: 10/30/16 20:40 Last Admin: 10/30/16 20:47 Dose: 2 tab Azithromycin (Zithromax) 500 mg PO EDNOW ONE PRN Reason: Protocol Stop: 10/30/16 20:40 Last Admin: 10/30/16 20:47 Dose: 500 mg ED Course/Re-evaluation: The patient declined any treatment for her headache other than requesting a Vicodin to help with sleep for pain with sinus pressure. Will cover her with Zithromax antibiotic and follow up with primary care physician and/or neurologist for further evaluation No evidence tonight of LABORATORY SECRETARY infection or significant toxicity. - Depart Disposition: Home, Routine, Self-Care Clinical Impression: Sinusitis Qualifiers: Sinusitis location: frontal Chronicity: acute Recurrence: non-recurrent Qualified Code(s): J01.10 - Acute frontal sinusitis, unspecified Condition: Good Instructions: Sinusitis (ED) Additional Instructions: Diagnosis: Sinusitis Plan: Humidifier Continue ibuprofen or similar anti-inflammatory. Tylenol in addition if needed For tonight hydrocodone if needed for pain that prevents sleep Flonase steroid nasal spray. Zithromax antibiotic Follow up with primary care physician for any ongoing symptoms Return for any significant worsening despite the treatment plan Prescriptions: Azithromycin [Zithromax] 250 mg PO DAILY #4 tab Fluticasone Nasal [Flonase Nasal [place]] 2 sprays NASAL DAILY #1 mdi Referrals: Selvin Ye DO [Primary Care Provider] - As per Instructions
== END 2016-10-30 20:54 | disposition home or self-care (01) ==
LOC: CED 19:50
DX: J01.10 Acute frontal sinusitis, unspecified (principal)

== ENCOUNTER 2016-11-07 17:39 | Emergency (ER) | payer OTHER ==
[2016-11-07 17:58] VITALS: BP 125/89; PULSE 87; RESP 18; TEMP 97.9; O2SAT 96
== END 2016-11-07 18:22 | disposition left against medical advice (07) ==
LOC: CED 17:39
DX: Z53.21 Procedure and treatment not carried out due to patient leaving prior to being seen by health care provider (principal)

== ENCOUNTER 2016-11-17 17:18 | Emergency (ER) | payer OTHER ==
[2016-11-17 17:23] VITALS: RESP 16
--- NOTE | 2016-11-17 18:48 | EDPHY ---
H & P Time Seen by Provider: 11/17/16 18:37 HPI/ROS: CHIEF COMPLAINT: Facial scalp burning, right cheek swelling HISTORY OF PRESENT ILLNESS: 56-year-old female presents with persistent scalp and facial burning. She has a long history presumed sinusitis and has received multiple courses of antibiotics. Most recently she was on Augmentin for right cheek pain. The right cheek pain is usually associated with right at sided facial swelling. She also develops a burning sensation of her entire face and scalp. She is here today mainly because she has a burning sensation of her face and scalp, as well as inability to sleep because of the burning sensation. She has seen multiple physicians in the past for similar symptoms. No recent URI, nasal congestion or fever. REVIEW OF SYSTEMS: Constitutional: No fever Eyes: No visual changes ENT: No sore throat Respiratory: No cough, no shortness of breath Cardiac: No chest pain Gastrointestinal: no vomiting, no abdominal pain Genitourinary: no dysuria Musculoskeletal: No leg pain or swelling Skin: No rash Neurological: No headache Psychiatric: Anxiety Past Medical/Surgical History: Sinusitis Smoking Status: Never smoked Physical Exam: General Appearance: Alert, anxious Eyes: Pupils equal and round, no conjunctival injection ENT, Mouth: normal inspection, no tenderness over the sinuses, TMs normal, no pharyngeal erythema, Mucous membranes moist Neck: Normal inspection, no adenopathy Respiratory: normal respiratory rate Neurological: A&O, nonfocal, normal gait Skin: Warm and dry, no erythema Psychiatric: Anxious Constitutional: Initial Vital Signs Temperature (C) 36.8 C 11/17/16 17:21 Heart Rate 83 11/17/16 17:21 Respiratory Rate 16 11/17/16 17:21 Blood Pressure 108/79 11/17/16 17:21 O2 Sat (%) 97 11/17/16 17:21 O2 Delivery Mode Room Air Allergies/Adverse Reactions: egg [eggs] Allergy (Verified 11/17/16 17:19) gluten Allergy (Verified 11/17/16 17:19) Home Medications: Medication Instructions Recorded Adderall 10 MG (RX) 05/18/15 Advair Hfa 115-21 Mcg Inhaler 10/30/16 Fluticasone Nasal [Flonase Nasal 2 sprays NASAL DAILY #1 mdi 10/30/16 [place]] Augmentin 875 MG TAB (*) 11/17/16 Hydrocodone/APAP 5/325 [[place] 1 - 2 tab PO Q4H PRN #10 tab 11/17/16 5/325 (*)] Synthroid 11/17/16 methylPREDNISolone [Medrol Dose 1 each PO AD #1 ea 11/17/16 [place]] Medical Decision Making ED Course/Re-evaluation: This patient presents with multiple prior ED visits and ongoing burning sensation in her scalp. I will give her a trial of a Medrol Dosepak. She also requests Vicodin. No evidence of infection. She is instructed follow up with ENT. Departure - Departure Disposition: Home, Routine, Self-Care Clinical Impression: head burning sensation Condition: Good Instructions: Paresthesia (ED) Referrals: Corrina Farley MD [Medical Doctor] - As per Instructions (Call to make an appointment. ) Prescriptions: Hydrocodone/APAP 5/325 [[place] 5/325 (*)] 1 - 2 tab PO Q4H PRN #10 tab PRN Reason: Pain, Moderate methylPREDNISolone [Medrol Dose [place]] 1 each PO AD #1 ea
[2016-11-17 19:04] VITALS: BP 115/76; PULSE 58; TEMP 98.1; O2SAT 98
== END 2016-11-17 19:04 | disposition home or self-care (01) ==
DX: R20.8 Other disturbances of skin sensation (principal)

== ENCOUNTER → 2017-01-04 | Outpatient (CLI) | payer OTHER | LOC: CIMAGING 10:15 | PROVIDERS: ATTEND Psychiatry & Neurology Neurology | DX: H93.A1 Pulsatile tinnitus, right ear (principal) | CPT/HCPCS: 93880-PO ==

== ENCOUNTER → 2017-02-02 | Outpatient (CLI) | payer OTHER ==
[~2017-02-02] MED LIST changes: +IOPAMIDOL (ISOVUE-300) 100 ML BTL ONE; -SINCALIDE 5 MCG VIAL IJ ONE
== END ==
LOC: FIMAGING 09:38
PROVIDERS: ATTEND Internal Medicine Infectious Disease
DX: K06.9 Disorder of gingiva and edentulous alveolar ridge, unspecified (principal)
CPT/HCPCS: Q9967

== ENCOUNTER 2017-07-26 19:47 | Emergency (ER) | payer OTHER ==
[2017-07-26 19:56] VITALS: BP 129/85
[2017-07-26] MEDS ORDERED: HYDROCOD/APAP 5/325 PREPACK#6 BTL TAKEHOME ONE (20:11)
--- NOTE | 2017-07-26 20:11 | EDPHY ---
H & P Time Seen by Provider: 07/26/17 19:57 HPI/ROS: CHIEF COMPLAINT: Right-sided jaw and ear pain HISTORY OF PRESENT ILLNESS: Patient had a titanium implants in her jaw which were removed 5 years ago. She has been having right-sided ear and jaw pain since this April and had a tube placed in her right ear for serous otitis by ENT. She presents now with continued right-sided ear and jaw pain which is been present for at least the last 3 or 4 months, she started taking Augmentin which was left over from prescription in December and has been on it for the last 6 days without any improvement. She had some improvement with oral ibuprofen. REVIEW OF SYSTEMS: Has dentures, teeth have been removed. Has some burning in the scalp above and posterior to the right ear. No skin rash or fever. No change in voice or difficulty breathing or swallowing. No drainage from the ear. No sore throat or gum swelling. She says she feels that her right cheek and face is a little bit swollen. No abdominal pain or vomiting or stool changes. PAST MEDICAL HISTORY: Includes hypothyroid, appendectomy, attention deficit hyperactivity disorder. Social history: Nonsmoker General Appearance: Alert and conversant, cooperative. Normal ear canals bilaterally, left tympanic membrane is normal. Right tympanic membrane has a blue ear tube in place, no drainage or redness of the ear drum. Scalp does not show any rash, specifically no vesicles or evidence of zoster. No mastoid swelling or tenderness. No frontal or maxillary sinus swelling or tenderness. No tenderness to palpation of the jaw except over the right TMJ. No skin discoloration over the face or jaw or warmth. No trismus, upper dentures in place, normal pharynx. Uvula midline. Normal voice and no respiratory distress. She does have reproducible tenderness over the right TMJ which replicates her symptoms. Emergency Department course/MDM: At this visit the patient's symptoms are most consistent with TMJ syndrome. The patient voiced concern about "bone infection" but I think that is less likely given the findings noted above. She is advised to stop taking the Augmentin. She is given a take-home pack Vicodin 6, referred to oral surgery in follow-up. I think it is reasonable for her to continue with ibuprofen because apart from a little bit of heartburn she does not have other signs or symptoms of GI bleed or ulcer. Smoking Status: Never smoked Constitutional: Initial Vital Signs Temperature (C) 36.5 C 07/26/17 19:52 Heart Rate 88 07/26/17 19:52 Respiratory Rate 18 07/26/17 19:52 Blood Pressure 129/85 H 07/26/17 19:52 O2 Sat (%) 95 07/26/17 19:52 O2 Delivery Mode Room Air Allergies/Adverse Reactions: egg [eggs] Allergy (Verified 07/26/17 19:52) Pt reports nausea gluten Allergy (Verified 07/26/17 19:52) Pt reports nausea Home Medications: Medication Instructions Recorded Adderall 10 MG (*) 07/26/17 Augmentin 125-31.25 mg/5 ml 07/26/17 Synthroid 07/26/17 MDM/Departure - MDM Medications Given: Discontinued Medications Hydrocodone Bitart/Acetaminophen ([place] 5/325mg [place]#6) 1 btl TAKEHOME EDNOW ONE Stop: 07/26/17 20:12 Last Admin: 07/26/17 20:18 Dose: 1 btl - Depart Disposition: Home, Routine, Self-Care Clinical Impression: TMJ (temporomandibular joint disorder) Condition: Good Instructions: Hydrocodone/Acetaminophen (By mouth), Temporomandibular Disorder (ED) Additional Instructions: Stop taking the Augmentin. Please followup with oral surgeon this week (Dr. Jauregui). You can continue with the ibuprofen as discussed, up to 600mg by mouth every 8 hours for the next 5 days as needed. Referrals: Selvin Ye DO [Primary Care Provider] - As per Instructions Frieda Jauregui, LAINES [Doctor of Dental Surgery] - As per Instructions
== END 2017-07-26 20:20 | disposition home or self-care (01) ==
LOC: CED 19:47
DX: M26.601 Right temporomandibular joint disorder, unspecified (principal)

== ENCOUNTER 2018-03-21 18:59 | Emergency (ER) | payer OTHER | END 2018-03-21 19:10 | disposition left against medical advice (07) | LOC: CED 18:59 | DX: Z53.21 Procedure and treatment not carried out due to patient leaving prior to being seen by health care provider (principal) ==